=== PATIENT | female | born 1985 ===

== ENCOUNTER 2018-04-14 11:36 | Emergency (ER) | payer MEDICAID, OTHER ==
[2017-09-21 21:39] VITALS: BMI 22.8
[2018-04-14 19:26] VITALS: BP 141/81; PULSE 106; TEMP 98.7; O2SAT 99
== END 2018-04-14 15:00 | disposition home or self-care (01) ==
LOC: H.EROB2 11:36 → H.L&D 13:02 → H.EROB2 15:00
DX: O26.93 Pregnancy related conditions, unspecified, third trimester (principal); N89.8 Other specified noninflammatory disorders of vagina; Z3A.39 39 weeks gestation of pregnancy; O47.1 False labor at or after 37 completed weeks of gestation

== ENCOUNTER 2018-04-18 23:05 | Inpatient (IN) | payer OTHER ==
--- NOTE | 2018-04-18 23:16 | OBHP ---
Datetime: 04/14/2018 13:52 IP Adm Impression: Term, intrauterine IP Admit Plan: Observation/Evaluation; Discharge home Admit Comment, IP Provider: 33 y/o, , 39.1 wks based on LMP with NARGIS of 04/20/18 presents to [facility] BED with vaginal discharge. Patient noticed brownish discharge with mucus plug yesterday. Denies any active VB, LOF. CTx Qhr since yesterday. Endorses goof FM. Denies F/C/CP/SOB/N/V/D/Urinary complains. Appetitie WNL : Dr. Oswald, GBS + PMHx: Denies PSHx: Denies Allergies: None F/H: Mother thyroid, Father HTN Social Hx: Denies current smoking/alchohol or drug use. Physical exam Gen: NAD Heart: S1S2 present, RRR Lungs: CTAB Abdomen: NT, Gravid Ext: No pedal edema A/P: 33 y/o, , 39.1 wks based on LMP with NARGIS of 04/20/18 presents to [facility] with vaginal disc harge. EFM and [place] monitoring No CTx on monitor, NST reactive, + Accels, No decels, Moderate variability Observation Patient to be discharged home, and t F/U with Dr. Oswald in 1 week Labor precautions provided. Sathya Layton, PGY1 Pelvic Type - PN: Not Done Extremities - PN: Normal Abdomen - PN: Normal Back - PN: Normal Breast - PN: Not Done Lungs - PN: Normal Heart - PN: Normal Thyroid - PN: Normal Neurologic - PN: Normal HEENT - PN: Normal General - PN: Normal FHR - Baseline A Provider: 130 Contraction Comments Provider: Absent Comments, ACOG Physical Exam: SVE: Fingertip/thick and long. Done by Dr. Berger IP Hx Assessment: The History has been Reviewed and is Current EGA AdmitDate IP: 39.1 Vital Signs Provider: Reviewed; Within Normal Limits IP Chief Complaint: Other NICHD Variability Prov Fetus A: Moderate 6-25bpm NICHD Accel Fetus A IP Provider: 15X15 FHR Category Provider Fetus A: Category I NICHD Decel Fetus A IP Provider: None Genitourinary Exam: Normal DTRs - PN:
--- NOTE | 2018-04-18 23:54 | OBADHP ---
Datetime: 04/18/2018 23:52 Admit Comment, IP Provider: PI: 33 yo at 39+5 wks w/ EDC 04/20/2018, sent to [facility] by Dr. Shayla barrett for ctxns every 5 minutes that started around 2029. Pt denies VB, LOF and reports FM. PMH: H/o Rheumatic fever at 4 yo, heart murmur PSH: None Meds: PNVs All: NKDA Fam hx: F-HTN, M-thyroid surgery Generator Technician hx: menarche at 9 yo, regular periods, pt denies STDs and abn paps Obhx: TOP x2 PE: AFVSS Gen'l Pt is breathing through ctxns Heart: RRR Chest: Lungs CTA b/l Abd: soft, NT, gravid Ext trace edema VE: 3/75/ -2 at 2330 per RN exam EFM: as above [place]: as above A/P: 33 yo at 39+5 wks in labor admitted to L_D. Ampicillin ordered for GBS prophylaxis. FHT reactive. Extremities - PN: Normal Abdomen - PN: Normal Back - PN: Normal Lungs - PN: Normal Heart - PN: Normal General - PN: Normal FHR - Baseline A Provider: 120's Membranes, Provider: Intact Vital Signs Provider: Reviewed IP Chief Complaint: Uterine contractions NICHD Variability Prov Fetus A: Moderate 6-25bpm NICHD Accel Fetus A IP Provider: 15X15 FHR Category Provider Fetus A: Category I NICHD Decel Fetus A IP Provider: None Dilatation, Provider: 3 Effacement, Provider: 75 Station, Provider: -2 Genitourinary Exam: Normal EGA AdmitDate IP: 39.6 IP Adm Impression: Term, intrauterine IP Admit Plan: Admit to unit; Initiate labor protocol Datetime: 04/18/2018 23:45 Neurologic - PN: Normal Contraction Comments Provider: irreg Datetime: 04/14/2018 13:52 Pelvic Type - PN: Not Done Breast - PN: Not Done Thyroid - PN: Normal HEENT - PN: Normal Comments, ACOG Physical Exam: SVE: Fingertip/thick and long. Done by Dr. Berger IP Hx Assessment: The History has been Reviewed and is Current DTRs - PN:
[2018-04-19 00:22] VITALS: BMI 30.4
[2018-04-19] MEDS ORDERED: AMPicillin 2 GM in Sodium Chloride 0.9% 100 ML IVPB ONE (00:27)
[2018-04-19] MEDS ORDERED: Lactated Ringer's 1,000 ML IV ONE (00:27)
[2018-04-19] MEDS: Lactated Ringer's 1,000 ML IV SCH ×2 (00:30→07:30)
[2018-04-19 01:13] LABS: EOS # 0.1 K/uL (0.0-0.7); MONO # 1.1 K/uL (0.0-0.8); NRBC % 0.1 % (0.0-0.0); WHITE BLOOD COUNT 14.6 K/uL (4.8-10.8)
[2018-04-19 01:19] LABS: BASO % 0.2 % (0.0-2.0); EOS % 0.9 % (0.0-4.0); HEMOGLOBIN 14.6 g/dL (12.0-16.0); LYMPH # 2.1 K/uL (1.0-4.3); LYMPH % 14.5 % (20.0-40.0); MEAN CELL VOLUME 89.2 fl (81.0-99.0); MEAN CORPUSCULAR HEMOGLOBIN 30.7 pg (27.0-31.0); MEAN CORPUSCULAR HGB CONC 34.4 g/dL (33.0-37.0); MEAN PLATELET VOLUME 13.2 fl (7.2-11.7); MONO % 7.7 % (0.0-10.0); NEUT # 11.2 K/uL (1.8-7.0); NEUT % 76.7 % (50.0-75.0); RBC 4.75 Mil/uL (3.80-5.20); RED CELL DISTRIBUTION WIDTH 13.4 % (11.5-14.5)
[2018-04-19] MEDS ORDERED: Oxytocin 30 UNIT 30 UNITS/500 ML BAG IV ONE ×2 (03:30→12:19)
[2018-04-19] MEDS ORDERED: Fentanyl/Bupivacaine HCl 250 ML EPI ONE (04:43)
[2018-04-19] MEDS: AMPicillin 1 GM in Sodium Chloride 0.9% 100 ML IVPB SCH ×3 (05:36→13:19)
[2018-04-19] MEDS ORDERED: Phenylephrine 10 mg/ml Inj ONE (06:46)
[2018-04-19] MEDS ORDERED: Lidocaine 1% Inj (20ml) ONE (12:03)
[2018-04-19] MEDS ORDERED: OXYTOCIN/0.9 % NS 20 UNIT/1,000 ML BAG IV SCH ×2 (12:30→19:50)
[2018-04-19] MEDS ORDERED: Benzocaine/Menthol SPRAY TOP PRN ×2 (14:44→19:50)
[2018-04-19] MEDS ORDERED: Oxycodone/Acetaminophen 5/325 mg Tab PO PRN ×2 (14:44→19:50)
--- NOTE | 2018-04-19 14:58 | OBDS ---
DELIVERY PERSONNEL Delivery Doctor: Kate Oswald MD Coremaker Helper: MBorreoRN/DCandelaria- CastroRN MATERNAL INFORMATION Delivery Anesthesia: Epidural Medications in Delivery: Pitocin Estimated Blood Loss (ml): 250 Placenta Cultured: No Maternal Complications: None Provider Comments: Delivered a living baby girl appears AGA cried spontanously 9/9, AF clear, placenta delivered complete and intact Uterus contracted well Small vaginal tear repaired as above No cervical or perineal tears noted Tolerated procedure well No complications LABOR SUMMARY EDC: 04/20/2018 00:00 No. Babies in Womb: 1 Attempted: No Labor Anesthesia: Epidural LABOR INFORMATION Reason for Induction: Not Applicable Onset of Labor: 04/19/2018 08:49 Complete Dilatation: 04/19/2018 12:30 Oxytocin: Augmentation Group B Beta Strep: Positive Antibiotics # of Doses: Ampicillin 2 grams/Ampicillin 1 gram Steroids Given: None Reason Steroids Not Administered: Not Applicable MEMBRANES Membranes Rupture Method: Spontaneous Rupture of Membranes: 04/19/2018 12:30 Length of Rupture (hrs): 2.00 Amniotic Fluid Color: Clear Amniotic Fluid Amount: Moderate Amniotic Fluid Odor: Normal STAGES OF LABOR Stage 1 hrs: 3 Stage 1 min: 41 Stage 2 hrs: 2 Stage 2 min: 0 VAGINAL DELIVERY Episiotomy: None Laceration Extension: First Degree Laceration Type: Vaginal Laceration Repair: Yes Laceration Repair Note: small superficial vaginal tear repaired with 2-0 chromic simple sutures x2 Sponge Count Correct: Yes Sharps Count Correct: Yes Count Comment: count correct and verified by RN CSECTION DELIVERY Primary Indication: N/A Secondary Indication: N/A CSection Incision: N/A Uterine Closure: N/A BABY A INFORMATION Delivery Date/Time: 04/19/2018 14:30 Method of Delivery: Vaginal Forceps: N/A Vacuum Extraction: N/A Shoulder Dystocia : No SHOULDER DYSTOCIA BABY A Infant Delivery Date/Time: 04/19/2018 14:30 PRESENTATION/POSITION BABY A Presentation: Cephalic Cephalic Presentation: Vertex Vertex Position: Left Occipital Anterior Breech Presentation: N/A PLACENTA INFORMATION BABY A Placenta Method of Delivery: Spontaneous Placenta Status: Retained IDENTIFICATION/MEDS BABY A ID Band Number: [id number]
--- NOTE | 2018-04-20 08:23 | OBPPN ---
Datetime: 04/20/2018 08:19 PP Pain Prov: Within normal limits PP Pain Prov comment: no SOB, chest or leg pains PP Nausea Prov: Denies PP Flatus Prov: Yes PP Nausea Prov comment: denies excessive bleeding PP Breasts Prov: Normal PP Lungs Prov: Normal PP Abdomen/Uterus Prov: Abnormal PP Lochia Prov: Normal PP Vulva/Perineum Prov: Abnormal PP CVA Tenderness Prov: Normal PP Extremities Prov: Normal PP C/S Incision Prov: Not Applicable PP Progress Prov: Normal PP Comments Phys Exam Prov: breast not engorged NT, breast feeding; Abdf soft ND, fundus firm below the umb NT; Perineum repaired Ext no calf tenderness. PP Impression Prov: Normal progression PP Plan Prov: Continue present management PP Progress Note Prov: CBC for this am ordered but not done, lab called. OOB and ambulation Continu e PP care IP PP Procedures: None
[2018-04-20 09:18] LABS: HEMOGLOBIN 13.5 g/dL (12.0-16.0); MEAN CELL VOLUME 92.1 fl (81.0-99.0); MEAN CORPUSCULAR HEMOGLOBIN 30.6 pg (27.0-31.0); MEAN CORPUSCULAR HGB CONC 33.2 g/dL (33.0-37.0); RBC 4.42 Mil/uL (3.80-5.20); RED CELL DISTRIBUTION WIDTH 13.2 % (11.5-14.5); WHITE BLOOD COUNT 15.2 K/uL (4.8-10.8)
--- NOTE | 2018-04-21 07:27 | OBPPN ---
Datetime: 04/21/2018 07:22 PP Pain Prov: Within normal limits PP Pain Prov comment: no SOB, chest or leg pains PP Nausea Prov: Denies PP Flatus Prov: Yes PP Breasts Prov: Normal PP Lungs Prov: Normal PP Abdomen/Uterus Prov: Abnormal PP Lochia Prov: Normal PP Vulva/Perineum Prov: Not Done PP CVA Tenderness Prov: Normal PP Extremities Prov: Normal PP C/S Incision Prov: Not Applicable PP Progress Prov: Normal PP Comments Phys Exam Prov: breast ne, NT, breast feeding; Abd soft nd, fundus firm below the umb. NT ext no calf tenderness PP Plan Prov: Continue present management PP Impression Other Prov: thrombocytopenia PP Progress Note Prov: Mannual khris count done and 120,000. Director Quality Systems consult done pending eval uation and if ok possible D/C home and will follow in office 2 wks for CBC. Pt infeormed and underst ands and agreedl IP PP Procedures Comments: computer technology trainer consult Vital Signs Provider PP: Reviewed
--- NOTE | 2018-04-21 09:11 | CP.PCM.CON ---
History of Present Illness - History of Present Illness History of Present Illness: This is a 33 yrs old female who was admitted in labor and had a on 04/19/18. On admission her platelets were 120K. After delivery the count went down to 111K. However te manual count was 120k. She had a CBC in july 2017 at which t matti she had a platelet count of 152k. We dont have a cbc since then but she does not give a h/o ecchymosis or excessive bleeding either. No family h/o thrombocytopenia. No other medical history. Past Patient History - Past Social History Smoking Status: Never Smoked Meds Allergies/Adverse Reactions: Allergies Allergy/AdvReac Type Severity Reaction Status Date / Time No Known Allergies Allergy Verified 05/17/17 10:24 - Medications Medications: Current Medications Benzocaine/Menthol (Dermoplast) 1 sprays TOP Q6 PRN PRN Reason: Perineal Discomfort Last Admin: 04/20/18 04:28 Dose: 1 sprays Docusate Sodium (Colace) 100 mg PO BID ALISE Last Admin: 04/20/18 16:15 Dose: 100 mg Ibuprofen (Motrin Tab) 600 mg PO Q6 PRN PRN Reason: Pain, Mild (1-3) Last Admin: 04/21/18 08:44 Dose: 600 mg Oxycodone/Acetaminophen (Percocet 5/325 Mg Tab) 1 tab PO Q4 PRN PRN Reason: Pain, moderate (4-7) Stop: 04/22/18 14:45 Physical Exam - Additional Findings Additional findings: Physical exam; Alert,well oriented ,in no acute distress neck; supple, no adenopathy Chest; Clear, no rales or rhonchi Heart. RSR, no murmur Abd; Soft, no mass, no h/s megaly.No excessive bleeding post . Results - Labs Result Diagrams: 04/20/18 09:10 Labs: Laboratory Results - last 24 hr 04/20/18 04/20/18 09:10 09:55 WBC 15.2 H RBC 4.42 Hgb 13.5 Hct 40.7 MCV 92.1 D MCH 30.6 MCHC 33.2 RDW 13.2 Plt Count 111 L Manual Plt Count 120 L Assessment & Plan - Assessment and Plan (Free Text) Assessment: Impression; Mild thrombocytopenia could be due to some aaaaplatelet antibodies. Pt may be discharged today.Repeat the count after 2 weeks and if low will need to look for platelet antibodies, and do the baby cbc as well. - Date & Time Date: 04/21/18 Time: 09:21
[2018-04-21 20:01] VITALS: BP 111/70; PULSE 69; RESP 20; TEMP 97.8; O2SAT 100
== END 2018-04-21 14:31 | disposition home or self-care (01) | DRG 372 ==
LOC: H.EROB2 23:05 → H.L&D 04-19 00:27 → H.OB/GYN 04-19 17:18
PROVIDERS: ADMIT Specialist; ATTEND Specialist
PROC: 0HQ9XZZ Repair Perineum Skin, External Approach (ICD-10-PCS; principal; 2018-04-19)
PROC: 10E0XZZ Delivery of Products of Conception, External Approach (ICD-10-PCS; 2018-04-19)
PROC: 4A1HXCZ Monitoring of Products of Conception, Cardiac Rate, External Approach (ICD-10-PCS; 2018-04-19)
DX: O70.0 First degree perineal laceration during delivery (principal); O72.3 Postpartum coagulation defects; O99.824 Streptococcus B carrier state complicating childbirth; Z37.0 Single live birth; Z3A.39 39 weeks gestation of pregnancy